=== PATIENT | male | born 1985 | race Hispanic/Latino ===

== ENCOUNTER 2017-11-01 12:42 | Emergency (ER) | payer BC ==
[~2017-11-01] VITALS: Ht 175.3 cm; Wt 86.2 kg
[2017-11-01] MEDS ORDERED: RESTASIS MULTI5.5 ML OP (13:03)
[2017-11-01] MEDS ORDERED: NAPROSYN500 MG PO (14:25)
[2017-11-01] MEDS ORDERED: CYCLOBENZAPRINE5 MG PO (14:25)
== END 2017-11-01 14:45 | disposition home or self-care (01) ==
LOC: ED 12:42
DX: S39.012A Strain of muscle, fascia and tendon of lower back, initial encounter (principal); X58.XXXA Exposure to other specified factors, initial encounter; K21.9 Gastro-esophageal reflux disease without esophagitis; Z79.899 Other long term (current) drug therapy
CPT/HCPCS: 80053; 81001; 85025; 96374; 99283; J1885; J7030

== ENCOUNTER 2021-02-25 20:24 | Observation (INO) | payer BC, OTHER ==
[~2021-02-25] VITALS: Ht 175.3 cm; Wt 86.0 kg
[~2021-02-25 20:24] MED LIST: CYCLOBENZAPRINE5 MG PO; NAPROSYN500 MG PO; RESTASIS MULTI5.5 ML OP
--- OUTSIDE RECORDS SUMMARY | 2021-02-25 20:30 | XMS ---
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 EVictor Manuel VISIT COUNT (12 MO.) 1 MEÑO Gustafson TOTAL 1 NOTE: Visits indicate total known visits. ED/UCC VISIT TRACKING (12 MO.) 02/25/2021 20:24 MEÑO Patricia OR TYPE: Emergency COMPLAINT: - WOUND INPATIENT VISIT TRACKING (12 MO.) No inpatient visits to display in this time frame [email or web address]
--- NOTE | 2021-02-25 22:41 | NUR ---
02/25/212240 Sravani Branham 2236: PT IN TO PACU WITH EYES CLOSED ON 6 L O2 VIA MASK. PT DOES NOT AROUSE WITH VERBAL STIMULATION. RESP EVEN AND UNLABORED.
--- NOTE | 2021-02-26 00:08 | NUR ---
2320 PATIENT ARRIVED VIA STRETCHER FROM OR. ABLE TO TRANSFER TO THE BED WITH MINIMAL ASSIST. SOMMERS IN PLACE. SCDs ON. VS STABLE. DRESSING ON ABD CDI, NO SHADOWING. IV SITE WNL, X2. PATIENT ALERT AND ORIENTED. FAMILY AT BEDSIDE. PATIENT REPORTS PAIN WITH MOVEMENT BUT OTHERWISE IS COMFORTABLE. DENIES NEED FOR PRN PAIN MEDS. PROVIDED WITH ICE CHIPS AND JELLO. IV FLUIDS STARTED PER ORDER. SOMMERS HAS ABOUT 400 MLS DILUTE URINE.
--- NOTE | 2021-02-26 00:46 | NUR ---
PATIENT REPORTS PAIN 6/10 NEAR HIS UMBILICUS AND AGREES TO TRY SOME PRN PAINS MEDS. 4 MG MORPHINE PROVIDED. PATIENT REPORTS SOME PAIN RELIEF. IV FLUIDS PER ORDER, SITE WNL. SOMMERS DRAINING WELL. VS STABLE.
--- NOTE | 2021-02-26 01:00 | NUR ---
PATIENT RESTING IN BED. REPORTS IMPROVED PAIN CONTROL. DENIED NAUSEA. VS STABLE. NO SHOWDOWING NOTED ON ABD WOUND DRESSING. ICE PACKS IN PLACE. SCDS ON. PATIENT PROVIDED WITH FRESH ICE WATER.
--- NOTE | 2021-02-26 03:45 | NUR ---
PATIENT RESTING WITH EYES CLOSED. WAKES WHEN RN ENTERS ROOM. REPORTS GOOD PAIN CONTROL. DRESSING CDI. VS STABLE. SOMMERS HAS LARGE AMOUNT DILUTE URINE, SOMMERS EMPTIED. PATIENT DENIED NEEDS.
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
--- NOTE | 2021-02-26 07:30 | NUR ---
report recieved. PATIENT IS RESTING IN BED. SON IS IN ROOM. IVF PATENT.
--- NOTE | 2021-02-26 08:30 | NUR ---
ASSESSMENT DONE. C/O POST OP PAIN. TALKED WITH PATIENT ABOUT POC FOR DAY, INDICATES UNDERSTANDING. ABD DRESSING IS INTACT WITH SMALL AMOUNT OF DRAINAGE NOTED ON DRESSING. PATIENT DENIES NAUSEA.
--- NOTE | 2021-02-26 08:40 | NUR ---
MORPHINE 4 MG IV GIVEN FOR ABD PAIN. IS AT BEDSIDE. IVF ON HOLD WHILE PATIENT EATING.
[2021-02-26] MEDS ORDERED: NIACIN500 M1 PO (10:15)
[2021-02-26] MEDS ORDERED: CO Q-1050 MG PO (10:15)
--- NOTE | 2021-02-26 10:15 | NUR ---
MED REC COMPLETE
--- NOTE | 2021-02-26 10:30 | NUR ---
AMBULATING IN HALLWAY, THEN TO CHAIR. TOLERATED TRANFER WELL.
--- NOTE | 2021-02-26 11:20 | NUR ---
AMBULATING IN DEPARTMENT WITH . TOLERATING AMBULATION WELL.
--- NOTE | 2021-02-26 11:45 | NUR ---
DR. ENCINAS HERE TO SEE PATIENT. ABD DRESSING AND GAUZE DC'D BY DR. ENCINAS. INSTRUCTIONS ON HOW TO CARE FOR WOUND GIVEN TO PATIENT AND PATIENT BY DR. ENCINAS.
[2021-02-26] MEDS ORDERED: MOTRIN IB200 MG PO (12:02)
[2021-02-26] MEDS ORDERED: ACETAMINOPHEN500 MG PO (12:02)
[2021-02-26] MEDS ORDERED: PERCOCET 7.5-31 EACH PO (12:03)
[2021-02-26] MEDS ORDERED: TYLENOL EXTRA500 MG PO (12:04)
--- NOTE | 2021-02-26 13:06 | NUR ---
RESTING. IS W/O C/O. AWAITING DISCHARGE.
--- NOTE | 2021-02-26 13:30 | NUR ---
DISCHARGE INSTRUCTIONS GIVEN TO PATIENT AND PATIENT WITH UNDERSTANDING. SL X 2 DC'D WITH CATH INTACT.
--- NOTE | 2021-02-26 14:30 | NUR ---
DISCHARGED VIA W/C. ACCOMP BY AND NURSE.
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
== END 2021-02-26 14:30 | disposition home or self-care (01) ==
LOC: ED 20:24 → DSVR 22:55 → DS 22:55 → CCU 22:56 → DS 22:56 → DSVR 22:56 → CCU 02-26 14:30
PROVIDERS: ADMIT Surgery; ATTEND Surgery
PROC: 0JB80ZZ Excision of Abdomen Subcutaneous Tissue and Fascia, Open Approach (ICD-10-PCS; principal; 2021-02-25 22:00)
DX: S31.145A Puncture wound of abdominal wall with foreign body, periumbilic region without penetration into peritoneal cavity, initial encounter (principal); K21.9 Gastro-esophageal reflux disease without esophagitis; W32.0XXA Accidental handgun discharge, initial encounter; Z20.822 Contact with and (suspected) exposure to COVID-19
CPT/HCPCS: 00790; 71045; 74018; 74177; 80053; 81001; 82150; 82553; 83690; 85025; 86850; 86900; 86901; 86922; 90471; 90715; 96374; 96375; 96376; 99285-25; G0378; G0480; J0330; J0690; J1100; J1885; J2001; J2250; J2270; J2405; J2704; J7121; Q9967; U0003

== ENCOUNTER 2021-03-01 15:53 | Inpatient (IN) | payer BC, OTHER ==
[~2021-03-01] VITALS: Ht 175.3 cm; Wt 88.0 kg
[~2021-03-01 15:53] MED LIST changes: +ACETAMINOPHEN500 MG PO; +CO Q-1050 MG PO; +MOTRIN IB200 MG PO; +NIACIN500 M1 PO; +PERCOCET 7.5-31 EACH PO; +TYLENOL EXTRA500 MG PO
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
[2021-03-01] MEDS ORDERED: AMOX TR-K CLV1 EACH PO (16:51)
--- NOTE | 2021-03-01 19:02 | NUR ---
Pt to floor. Vital signs taken, stable at this time. Pt alert and oriented x4. Two abd dressing CDI. Iv fluids started. Patient oriented to room and call light. Patient's at bedside.
--- NOTE | 2021-03-01 19:30 | NUR ---
BEDSIDE REPORT RECEIVED FROM TYSON BRAGG. pt SITTING UP IN CHAIR. IVF INFUSING WNL. NEXT TO pt. WARM BLANKET PROVIDED REQUESTED. CALL LIGHT WITHIN REACH.
--- NOTE | 2021-03-01 19:56 | EKG ---
[facility] [address] [facility] [place], [place] [address] Signed Sinus tachycardia Otherwise normal ECG No previous ECGs available Confirmed by TYESHA EWING MD ([id number]) on 03/01/2021 7:56:07 PM Electronically Signed By: TYESHA EWING MD 03/01/211955 PATIENT NAME: CUMMINGSNORM Electrocardiogram DATE OF : [birth year] PHYSICIAN: TYESHA EWING MD REPORT #: [id number] REPORT IS CONFIDENTIAL AND NOT TO BE RELEASED WITHOUT AUTHORIZATION
--- NOTE | 2021-03-01 21:34 | NUR ---
pt ASSESSMENT COMPLETE. pt COMPLAINS OF 5/10 ABDOMINAL PAIN AND POLLARD. TEMPERATURE 100.0 AT THIS TIME ORALLY. PRN PAIN MEDICATION AND SCHEDULED TYLENOL ADMINISTERED. ABD SOFT, DISTENDED. DRESSING CHANGED PER pt REQUEST LEAKING SCANT AMT SS FLUID ON DRESSING. SLIGHTLY REDDENED AREA AROUND WOUND MARGINS X 2. IVF INFUSING WNL. ICE WATER PROVIDED. PO FLUIDS ENCOURAGED. COUCH MADE FOR . NO ADDITIONAL REQUESTS. CALL LIGHT IN REACH.
--- NOTE | 2021-03-01 23:35 | NUR ---
pt RESTING IN BED WITH EYES CLOSED. NO DISTRESS NOTED.
--- NOTE | 2021-03-02 02:30 | NUR ---
pt SLEEPING, AWAKENS TO VOICE. VSS. AFEBRILE. ASSESSMENT COMPLETE. DRESSINGS CDI ON ABD. ABD SOFT, TENDER WITH PALPATION, BOWEL TONES ACTIVE. pt DENIES ANY PAIN AT THIS TIME. ORANGE JUICE PROVIDED REQUESTED. URINAL EMPTIED. CALL LIGHT WITHIN REACH.
--- NOTE | 2021-03-02 05:38 | NUR ---
CALL LIGHT ANSWERED. SBA TO RESTROOM FOR VOID AND BACK TO BED. IVF INFUSING WNL. pt RATES PAIN 2/10 IN ABDOMEN, "ITS A LOT BETTER, IT ONLY REALLY HURTS WHEN I MOVE NOW". SCHEDULED TYLENOL ADMINISTERED. VSS. AFEBRILE. WARM BLANKET PROVIDED. CALL LIGHT IN REACH.
--- NOTE | 2021-03-02 07:53 | NUR ---
PATIENT AWAKE RESTING IN BED. IS SLEEPING ON COUCH. I EMPTIED PATIENTS URINAL. VOIDED 250ML. ORDERED PATIENTS BREAKFAST. HE STATED HE DOES NOT NEED ANYTHING ELSE AT THIS TIME. CALL LIGHT IN REACH.
--- NOTE | 2021-03-02 07:54 | NUR ---
REPORT RECEIVED. PT IN BED WITH EYES CLOSED. RESPIRATIONS EQUAL AND NON-LABORED. CALL LIGHT IN REACH.
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
--- NOTE | 2021-03-02 10:00 | NUR ---
Spoke with pt and his Life partner. They reside in [place] in a 3 story home with 2 children. Pt does not use any DME, no financial issues. Pt plans on dc to home with Silverio and children on dc. Denies needs for dc.
--- NOTE | 2021-03-02 10:05 | NUR ---
It was my pleasure to visit with Oumar and his this morning following Oumar's opportunity to shower. Oumar and his both complimented the staff members for the care that he is receiveing. Oumar states that he is "extremely happy" with his care, adding "you have very good nurses." He also added "I feel like they listen, and they offer to us the things that we need." Oumar also, when asked, felt like the medications and the treatment plan were being explained to him and his . I explained information regarding discharge instructions and medication information. His volunteered that they new to "come back to the hospital" because she was "reading and following all the information from the ER." I commended them both on reading the discharge instructions, and following the physician recommendations. We talked more about pain management, and the need for pain management so that the body could have the energy to heal. Oumar verbalized an understanding of this concept. I did take time to dry the floors from his shower, and remove the dirty towels and dressing material from the time that he showered. The couple expressed no further questions or concerns.
--- NOTE | 2021-03-02 10:36 | NUR ---
ASSESSMENT COMPLETED. PT DENIES PAIN THIS MORNING. NO NAUSEA. BOWEL TONES ACTIVE. LUNGS CLEAR. PT SHOWERED THIS AM AND ATE IN CHAIR. PLAN TO AMBULATE IN HALLS. DRESSING CHANGE COMPELTED TO ABDOMENAL WOUNDS. MATILDE DRAIN. BORDER OF WOUND IS RED AND WAR. PURULENT DRAINAGE IS PRESENT. PT CLEANED WOUND IN SHOWER, THEN ABD AND TAPE PLACED. ANCEF ADMINISTERED. PT REPROTS FLUSHED FEELING AND SKIN APPEARS RED, NO BUMPS OR RASH PRESENT EXCEPT ON LEFT GLUTEAL FOLD. PT REPROTS IT IS ITCHING. BARRIER CREAM PROVIDED. WILL CONTINUE TO MONTIOR. TOLD PT TO MONITOR IF REDNESS GETS WORSE. PT WITH NO CONCERNS AT THIS TIME. WILL CONTINUE TO MONITOR SKIN.
--- NOTE | 2021-03-02 11:51 | NUR ---
PT OUT TO AMBULATE HALLS WITH [facility]. REPORTED 4/10 PAIN IN ABDOMEN. TORIDOL ADMINSTERED.
--- NOTE | 2021-03-02 14:50 | NUR ---
IN FOR ROUNDING AND MED PASS. PT REPORTS PAIN 09/22. SCHEDULED TYLENOL ADMISNTERED. DRESSING WITH SOME SHADOWING. NO LEAKING AND INTACT. CALL LIGHT IN REACH.
--- NOTE | 2021-03-02 17:46 | NUR ---
Medications reconciled
--- NOTE | 2021-03-02 18:39 | NUR ---
CALL MADE TO DR ENCINAS TO GIVE GRAM STAIN RESULTS. RESULTS READ OVER PHONE. DRESSING CHANGE TIME ALSO VERIFIED. ORDERS TO CHANGE DRESSING BID WITH GAUZE OR ABD AND TAPE. LET SOAP AND WATER WASH OVER WOUND IN SHOWER. PT NOW OUT HALLS.
--- NOTE | 2021-03-02 19:30 | NUR ---
PATIENT IN BED RESTING AND VISITING WITH HIS SON WHO IS AT BEDSIDE. PATIENT HS NO CURRENT CARE NEEDS AND CALL LIGHT IS IN REACH. REPORT RECEIVED FROM TYSON BOUDREAUX.
--- NOTE | 2021-03-02 21:11 | NUR ---
PATIENT GIVEN PM SCHEDULED MEDS ALONG WITH 30MG IV TORADOL AND 0.5MG IV DILUADID FOR 7/10 ABD AND POLLARD PAIN. PATIENT IS FEELING BETTER AND IS RESTING NOW AFTER GETTING UP TO THE RESTROOM INDEPENDENTLY. VS ARE STABLE AND CALL LIGHT IS IN REACH.
--- NOTE | 2021-03-02 22:45 | NUR ---
PATIENT'S ABD DRESSING CHANGED. PURULENT DRAINAGE NOTED AT BOTH DRAIN EXIT SITES. EDGES OF THE WOUNDS ARE RED, ABD IS WARM, BOWEL TONES ARE PRESENT, AND PATIENT SAYS HE IS PASSING GAS. WOUND EDGES CLEANED WITH STERILE WATER, 4X4 GAUZE PLACED OVER THE WOUNDS AND ABD PADS TAPED OVER THE ENTIRE AREA WITH MEDIPORE TAPE. PATIENT'S PAIN IS AT 3/10 AND BACK TO A COMFORTABLE LEVEL AFTER RECEIVING 0.5MG IV DILAUDID EARLIER. CALL LIGHT IS IN REACH AND PATIENT'S WATER GLASS REFILLED.
--- NOTE | 2021-03-02 23:06 | NUR ---
PATIENT CALLED AND SAID HIS LEFT BUTTOCK AND THIGH IS ITCHING AND HE IS NOT SURE WHY. PATIENT'S ROOM TEMP IS SET AT 76 DEGREES AND TEMP TURNED DOWN AND ICE PACK GIVEN FOR THE ITCHY AREA. WE WILL WAIT AND SEE IF THAT HELPS. SOME LOTION ALSO GIVEN TO THE PATIENT TO TRY. CALL LIGHT IS IN REACH.
--- NOTE | 2021-03-03 01:24 | NUR ---
CHECKED IN ON PATIENT WHO WAS RESTING QUIETLY. PATIENT SAID,"I'M GOOD", AND HAD NO CARE NEEDS AT THIS TIME. CALL LIGHT IS IN REACH.
--- NOTE | 2021-03-03 02:13 | NUR ---
PATIENT WAS RESTING WHEN I CAME IN TO GIVE THE 2AM ANTIBIOTIC. PATIENT DENIES THE NEED FOR ANY PAIN MEDICATION AT THIS TIME AND SAYS HE IS,"DOING OK". PATIENT'S URINAL WAS EMPTIED AND PATIENT HAS NO OTHER CARE NEEDS AT THIS TIME. CALL LIGHT IS IN REACH. PATIENT'S ITCHING HAS RESOLVED.
--- NOTE | 2021-03-03 03:55 | NUR ---
PATIENT CALLED HIS IV WAS BEEPING. NEW IV BAG HUNG AND URINAL EMPTIED. PATIENT HAD NO OTHER CARE NEEDS AT THIS TIME. CALL LIGHT IS IN REACH.
--- NOTE | 2021-03-03 05:27 | NUR ---
PATIENT SAID HE SLEPT BETTER THAN HE HAS IN SEVERAL DAYS. DRESSING TO THE ABD IS CLEAN DRY AND INTACT. 30MG IV TORADOL GIVEN WITH SCHEDULED TYLENOL FOR 2/10 ABD PAIN AND 4/10 POLLARD. I+O IS COMPLETE AND VS ARE STABLE. CALL LIGHT IS IN REACH. PATIENT LOOKING FORWARD TO POSSIBLE DISCHARGE TODAY.
--- NOTE | 2021-03-03 07:32 | NUR ---
REPORT RECEIVED FROM TYSON IVY. PT UP IN ROOM USING URINAL. PT STEADY ON FEET. PT REPORTS 2/10 HEADACHE PAIN AND "LESS THAN THAT" ABDOMINAL PAIN. THIS RN NOTES THAT PTS SPEACH SEEMS SLURRED IF HIS TOUNGE IS SWOLLEN. PT DENIES CHANGES TO HIS SPEACH OR FEELINGS OF A SWOLLEN TONGUE OR THROAT. WILL CONTINUE TO MONITOR. ABDOMINAL DRESSING C/D/I. NO ADDITIONAL REQUESTS OR COMPLAINTS. CALL LIGHT WITHIN REACH.
--- NOTE | 2021-03-03 07:54 | NUR ---
MORNING ASSESSMENT AND MEDICAITONS DUE. PT UP IN ROOM. PT CONTINUES TO REPORT 2/10 THROBBING HEADACHE. PT DENIES NEED FOR MEDICATION AT THIS TIME BUT STATES THE HEADACHE WAS "EXCRUTIATING" LAST NIGHT. PT ALSO REPORTS HE HAD "ITCHING AND A RED RASH" LAST NIGHT. NO RASH NOTED OVER SKIN AT THIS TIME. PT REPORTS ITCHING IS NOW "MILD." PT REPORTS HE HAD NO ITCHING PRIOR TO HOSPITAL STAY. SLIGHTLY SLURRED SPEACH CONTINUES. PT CONTINUES TO DENY ALTERATIONS IN HIS SPEACH PATTERN, DENIES SWOLLEN TONGUE. THROAT MILDLY REDENED WHICH PT ATTRIBUTES TO "THAT TUBE THEY HAD IN MY THROAT FROM SURGERY." PT DENIES SORE THROAT. DRESSING TO ABDOMEN C/D/I. DRESSING REMOVED FOR SHOWER. SMALL AMOUNT OF SEROUSANGUINOUS DRAINAGE NOTED FROM WOUND AND PINROSE DRAIN. GRANULATION TISSUE NOTED IN BASE OF BOTH SIDES OF TUNNEL WOUND. ORDER NOTED COMING FROM WOUND, PT STATES "OH, IT STINKS." CALLED AND STATES TO ALLOW PT A REGULAR DIET. DIET ORDER CHANGED. BREAKFAST ORDER PLACED. PT UP TO SHOWER. DRESSING REMOVED. IV'S COVERED. PT INDEPENDANT IN SHOWER, DEMONSTRATES USE OF CALL LIGHT. NO ADDITIONAL REQUESTS OR COMPALINTS. CALL LIGHT WITHIN REACH. PHOTOVOLTAIC TESTING TECHNICIAN TO BEDSIDE TO CHANGE LINENS.
--- NOTE | 2021-03-03 09:00 | NUR ---
Spoke with Oumar. Feeling better, no change in dc plan.
--- NOTE | 2021-03-03 10:00 | NUR ---
PT FINISHED WITH SHOWER. PT UP IN ROOM, VISITING WITH IS MOTHER. MOTHER, RACHEL, UPDATED ON PTS STATUS AND STATES HER QUESTIONS HAVE BEEN ANSWERED. WOUND WNL, WITH GRANULATION TISSUE NOTED. MILDLY WARMER THAN REST OF ABDOMEN. SMALL AMOUNTS OF SERIOUS DRAINGE NOTED. GAUZE, ABD PADS AND TAPE APPLIED PER MD ORDER. IV ABX GIVEN. PT DENIES ADDITIONAL ITCHING, RASH OR THROAT SWELLING. NO ADDITIONAL REQUESTS OR COMPLAINTS AT THIS TIME. CALL LIGHT WITHIN REACH.
[2021-03-03] MEDS ORDERED: AMOX TR-K CLV1 EAC1 PO (11:36)
--- NOTE | 2021-03-03 11:37 | NUR ---
MD UPDATED ON PTS STATUS. MD TO BEDSIDE FOR ROUNDS. DISCHARGE ORDERS PLACED. EDUCATION DONE WITH PT REGARDING HOME DRESSING CHANGES, INFECTION PREVENTIONS, ANTIBIOTIC USE. PT VERBALIZES UNDERSTANDING AND DEMONSTRATES UNDERSTANDING OF DRESSING CHANGE. IV DC'D PER PROTOCOL, GAUZE AND COBAN APPLIED. PT UP TO DRESS SELF. STEADY ON FEET. NO ADDITIONAL REQUESTS OR COMPLAINTS. CALL LIGHT WITHIN REACH.
--- NOTE | 2021-03-03 11:52 | NUR ---
PHARMACY CALLED AND UPDATED REGARDING DR. ENCINAS'S NURSE NOTIFITY ORDER RELATED TO AUGMENTIN DOSING. TOMMY, PHARMACIST REPEATS BACK ORDER AND STATES HE WILL PLACE DISCHARGE INSTRUCTIONS.
--- NOTE | 2021-03-03 12:11 | NUR ---
PT READY FOR DISCHARGE. PT DRESSED AND SITTING ON EDGE OF BED. MEDICAITONS REVIEWED WITH PT BY HOMAR SANDERS. PT VERBALIZES UNDERSTANDING AND STATES HIS QUESTIONS HAVE BEEN ANSWERED. DISCHARGE INSTRUCTIONS REVEWED WITH PT. PT VERBALIZES UNDERSTANDING OF INSTRUCTIONS, MEDICATIONS, DRESSING CHANGES, AND FOLLOW UP APPOINTMENT. PT TRANSFERS SELF TO WHEELCHAIR. NO ADDITIONAL REQUESTS OR CONCERNS.
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
== END 2021-03-03 12:25 | disposition home or self-care (01) | DRG 603 ==
LOC: ED 15:53 → MS 15:55
PROVIDERS: ADMIT Surgery; ATTEND Surgery
DX: L08.89 Other specified local infections of the skin and subcutaneous tissue (principal); E86.0 Dehydration; Z20.822 Contact with and (suspected) exposure to COVID-19; B96.89 Other specified bacterial agents as the cause of diseases classified elsewhere; K21.9 Gastro-esophageal reflux disease without esophagitis; Z87.442 Personal history of urinary calculi
CPT/HCPCS: 71045; 80048; 80053; 81001; 83605; 85025; 87040; 93005; 93010; C9803; J0690; J1170; J1885; J2405; J7121; U0003